=== PATIENT | female | born 1985 | race Caucasian/White ===

== ENCOUNTER 2019-08-28 19:16 | Emergency (ER) | payer MEDICAID ==
[2019-08-28 19:37] VITALS: Ht 157.5 cm
[2019-08-28 20:52] VITALS: BP 124/58
== END 2019-08-28 20:52 | disposition home or self-care (01) ==
LOC: ED 19:16
DX: M54.5 Low back pain (principal); Z88.0 Allergy status to penicillin; Z90.49 Acquired absence of other specified parts of digestive tract
CPT/HCPCS: J1885

== ENCOUNTER 2020-01-15 17:51 | Emergency (ER) | payer MEDICAID ==
[~2020-01-15] VITALS: Ht 157.5 cm; Wt 117.9 kg
[2020-01-15 18:03] VITALS: Ht 157.5 cm; Wt 117.9 kg
[2020-01-15 18:57] LABS: BASOPHIL % 0.5 % (0-2); PLATELET COUNT 340 x10^3mcL (130-400); RED CELL DISTRIBUTION WIDTH 13.1 % (11.5-14.5)
[2020-01-15 19:20] LABS: CHLORIDE SERUM 102 mmol/L (98-107); CREATININE SERUM 0.9 mg/dL (0.6-1.0); GFR1 > 60 mL/min; GLUCOSE SERUM 91 mg/dL (74-106); POTASSIUM SERUM 3.5 mmol/L (3.5-5.1); SODIUM SERUM 138 mmol/L (136-145)
[2020-01-15 19:26] LABS: ALBUMIN 4.1 g/dL (3.4-5.0); ALKALINE PHOSPHATASE 103 U/L (46-116); ALT/SGPT 27 U/L (14-59); AST/SGOT 14 U/L (15-37); BILIRUBIN TOTAL 0.4 mg/dL (0.20-1.00); TOTAL PROTEIN, SERUM 7.5 g/dL (6.4-8.2)
[2020-01-15 19:34] LABS: T3 TOTAL 1.39 ng/mL
[2020-01-15 20:39] LABS: AMPHETAMINE QUAL UR NONE DETECTED (See below)
[2020-01-15 21:19] LABS: FREE T4 1.09 ng/dL (0.76-1.46); FREE THYROXINE INDEX 2.9 ug/dL (1.4-4.5); T4(THYROXINE) 8.9 ug/dL (4.7-13.3)
[2020-01-15 21:39] VITALS: BP 131/78
== END 2020-01-15 21:39 | disposition home or self-care (01) ==
LOC: ED 17:51
PROVIDERS: Emergency Medicine
DX: R00.2 Palpitations (principal); R06.02 Shortness of breath; Z20.828 Contact with and (suspected) exposure to other viral communicable diseases; Z88.0 Allergy status to penicillin; Z90.49 Acquired absence of other specified parts of digestive tract
CPT/HCPCS: 83880; 84439; 85378

== ENCOUNTER 2020-05-17 16:57 | Emergency (ER) | payer MEDICAID ==
[~2020-05-17] VITALS: Ht 157.5 cm; Wt 119.3 kg
[2020-05-17 17:01] VITALS: Ht 157.5 cm; Wt 119.3 kg
[2020-05-17] MEDS ORDERED: MOT800 PO (17:27)
[2020-05-17 17:47] VITALS: BP 143/84
== END 2020-05-17 17:47 | disposition home or self-care (01) ==
LOC: ED 16:57
DX: M65.4 Radial styloid tenosynovitis [de Quervain] (principal)